=== PATIENT | female | born 1960 | race Caucasian/White ===

== ENCOUNTER 2018-07-01 19:40 | Emergency (ER) | payer OTHER ==
[~2018-07-01] VITALS: Ht 157.5 cm; Wt 101.8 kg
[~2018-07-01 19:40] MED LIST: DAILY VALUE1 EACH PO; DUONEB 2.5-0.5 M3 ML IH; LEVAQUIN500 MG PO; PREDNISONE20 MG PO; PROVENTIL,2.5 MG/3 M IH; TYLENOL EXTRA500 MG PO; VENTOLIN HFA18 GM IH
[2018-07-01 21:25] LABS: HEMATOCRIT 43.6 % (36.0-46.0); HEMOGLOBIN 14.3 G/DL (11.9-15.5); MCH 29.4 PG (29.0-34.0); MCHC 32.8 G/DL (30.0-36.0); MCV 89.5 FL (83-99); PLATELET COUNT 242 K/uL (156-360); RBC DIS.WIDTH-CV 14.6 % (11.8-14.6); RBC DIS.WIDTH-SD 47.8 % (39-53); RED BLOOD COUNT 4.87 M/uL (3.80-5.20); WHITE BLOOD COUNT 13.8 K/uL (4.1-10.2)
[2018-07-01 21:38] LABS: AMPHETAMINE NEGATIVE (500 ng/mL); BARBITURATES NEGATIVE (200 ng/mL); BENZODIAZEPINES NEGATIVE (150 ng/mL); BUPRENORPHINE NEGATIVE (10 ng/mL); COCAINE NEGATIVE (150 ng/mL); METHADONE NEGATIVE (200 ng/mL); METHAMPHETAMINE NEGATIVE (500 ng/mL); OPIATES (MORPHINE) NEGATIVE (100 ng/mL); OXYCODONE NEGATIVE (100 ng/mL); PHENCYCLIDINE NEGATIVE (25 ng/mL); PROPOXYPHENE NEGATIVE (300 ng/mL); THC CANNABINOIDS NEGATIVE (50 ng/mL); TRICYCLIC ANTIDEPRESSANTS NEGATIVE (300 ng/mL)
[2018-07-01 21:42] LABS: ALBUMIN 4.3 g/dL (3.2-4.8); CHLORIDE 107 mEq/L (99-109); POTASSIUM 4.2 mEq/L (3.7-5.4); SODIUM 142 mEq/L (136-147)
[2018-07-01 21:43] LABS: MAGNESIUM 2.2 mg/dL (1.3-2.7)
[2018-07-01 21:44] LABS: GLUCOSE 113 mg/dL (70-99); TOTAL PROTEIN 7.1 g/dL (6.4-8.3)
[2018-07-01 21:46] LABS: TOTAL BILIRUBIN 0.4 mg/dL (0.0-1.0)
[2018-07-01 21:47] LABS: SERUM ETHYL ALCOHOL < 10 mg/dL
[2018-07-01 21:48] LABS: ALKALINE PHOSPHATASE 92 IU/L (3-129); CREATININE 0.7 mg/dL (0.6-1.3); GFR ESTIMATE (CALCULATED) > 59 mL/min/
[2018-07-01 21:49] LABS: UREA NITROGEN (BUN) 7 mg/dL (9-23)
[2018-07-01 21:50] LABS: AST (GOT) 13 IU/L (2-34)
[2018-07-01 21:51] LABS: ALT (GPT) 16 IU/L (3-49); TROP-I INTERPRETATION NEGATIVE; TROPONIN-I < 0.01 ng/mL (0.0-0.30)
[2018-07-01 22:36] LABS: THYROTROPIN (TSH) 1.2 MIU/L (0.4-5.5)
[2018-07-01 23:03] VITALS: BP 129/80
== END 2018-07-01 23:06 | disposition home or self-care (01) ==
LOC: EME → EDBD 19:40 → EME 23:06
PROVIDERS: Emergency Medicine
DX: I49.3 Ventricular premature depolarization (principal); I25.2 Old myocardial infarction; Z95.5 Presence of coronary angioplasty implant and graft; R42 Dizziness and giddiness; R06.02 Shortness of breath; F17.200 Nicotine dependence, unspecified, uncomplicated
CPT/HCPCS: 71045; 80053; 83735; 84443; 84484; 85027; 93005; 99281; 99285; G0480